=== PATIENT | female | born 1925 | race Caucasian/White ===

== ENCOUNTER 2016-10-30 16:28 | Emergency (ER) | payer MEDICARE ==
[~2016-10-30] VITALS: Ht 152.4 cm; Wt 50.0 kg
[~2016-10-30 16:28] MED LIST: AMIODARONE200 MG OR; AMOXICILLIN500 M1 OR; ATIVAN1 MG PO; BABY ASPIRIN81 MG PO; BENICAR40 MG OR; CALCIUM 500+D500 + PO; CEPH500C57 OR; CIPRO XR500 MG PO; CLINDAMYCIN300 M1 OR; COUMADIN2 MG OR; COUMADIN4 MG OR; FISH OIL1000 MG OR; FISH OIL1000 MG PO; FLAGYL500 MG PO; FLEXERIL10 MG PO; LIPITOR40 MG PO; LOSARTAN POTAS100 MG PO; MECLIZINE25 MG PO; METOPROL TAR25 M1 PO; OSCAL 500/1 TAB OR; PRAVASTATIN20 MG PO; TRIAMCINOLON0.025 % EX; ULTRAM50 M1 OR; ULTRAM50 M1 PO; ZPAK PO
[2016-10-30] MEDS ORDERED: BACTRIM DS1 TAB PO (18:07)
[2016-10-30] MEDS ORDERED: NAPROSYN500 MG PO (18:07)
[2016-10-30 18:21] VITALS: BP 154/67
== END 2016-10-30 18:26 | disposition home or self-care (01) ==
LOC: ED 16:28
DX: S40.012A Contusion of left shoulder, initial encounter (principal); S60.212A Contusion of left wrist, initial encounter; S81.812A Laceration without foreign body, left lower leg, initial encounter; S51.811A Laceration without foreign body of right forearm, initial encounter; L08.9 Local infection of the skin and subcutaneous tissue, unspecified; I10 Essential (primary) hypertension; I25.10 Atherosclerotic heart disease of native coronary artery without angina pectoris; M19.90 Unspecified osteoarthritis, unspecified site; W18.39XA Other fall on same level, initial encounter; X58.XXXA Exposure to other specified factors, initial encounter; Z95.1 Presence of aortocoronary bypass graft; Z95.2 Presence of prosthetic heart valve